=== PATIENT | female | born 1995 ===

== ENCOUNTER 2018-03-12 20:32 | Inpatient (IN) | payer MEDICAID ==
[~2018-03-12] VITALS: Ht 165.1 cm; Wt 86.0 kg
[2018-03-12 21:04] VITALS: BP 138/88
[2018-03-12] MEDS ORDERED: OXYTOCIN 30U/ 0.9% NaCL 500ML 500 ML IV ONE (22:50)
[2018-03-12] MEDS ORDERED: D5%-LACTATED RINGERS 1,000 ML IV SCH (22:50)
[2018-03-12] MEDS ORDERED: LACTATED RINGERS 1,000 ML IV SCH (22:50)
[2018-03-12] MEDS ORDERED: FENTANYL PF 100 MCG/2ML IV PRN (23:00)
[2018-03-12] MEDS ORDERED: CALCIUM CARBONATE 500 MG TAB.CHEW PO PRN (23:00)
[2018-03-12] MEDS ORDERED: ONDANSETRON 2MG/ML, 2ML IVPush PRN (23:00)
[2018-03-12] MEDS ORDERED: OXYTOCIN 30U/ 0.9% NaCL 500ML 500 ML ONE (23:09)
[2018-03-12] MEDS ORDERED: MISOPROSTOL 200 MCG TABLET ONE (23:09)
[2018-03-12] MEDS ORDERED: LIDOCAINE/PF 1%, 30ML ONE (23:09)
[2018-03-12] MEDS ORDERED: NEWBORN KIT ONE (23:09)
[2018-03-12 23:12] LABS: BASOPHILS # (AUTO) 0.33 x10^3/uL (0-0.1); BASOPHILS % (AUTO) 2 % (0-1); EOSINOPHILS # (AUTO) 0.01 x10^3/uL (0-0.4); EOSINOPHILS % (AUTO) 0 % (1-7); LYMPHOCYTES # (AUTO) 1.44 x10^3/uL (1-3.4); LYMPHOCYTES % (AUTO) 9 % (22-44); MD NO; MEAN CORPUSCULAR HEMOGLOBIN 28.3 pg (27.0-34.8); MEAN CORPUSCULAR HGB CONC 33.8 g/dL (32.4-35.8); MEAN CORPUSCULAR VOLUME 83.9 fL (80-100); MEAN PLATELET VOLUME 9.2 fL (7.4-10.4); MONOCYTES # (AUTO) 1.07 x10^3/uL (0.2-0.8); MONOCYTES % (AUTO) 7 % (2-9); NEUTROPHILS # (AUTO) 13.33 x10^3/uL (1.8-6.8); NEUTROPHILS % (AUTO) 82 % (42-75); PLATELET COUNT 210 x10^3/uL (130-400); RED BLOOD COUNT 4.46 x10^6/uL (3.82-5.3); RED CELL DISTRIBUTION WIDTH 15.6 % (9.6-15.2)
[2018-03-13] VITALS: BP 130/66
[2018-03-13] MEDS ORDERED: FENTANYL PF 100 MCG/2ML ONE ×2 (00:49→03:05)
[2018-03-13] MEDS: FENTANYL PF 100 MCG/2ML IVPush PRN ×2 (00:54→03:10)
[2018-03-13] MEDS ORDERED: OXYTOCIN 30U/ 0.9% NaCL 500ML 500 ML IV SCH (06:04)
[2018-03-13] MEDS ORDERED: METHYLERGONOVINE 0.2 MG/ML IM PRN (06:30)
[2018-03-13] MEDS ORDERED: BISACODYL 10 MG SUPP PR PRN (06:30)
[2018-03-13] MEDS ORDERED: CARBOPROST TROMETHAMINE 250 MCG/ML, 1ML IM PRN (06:30)
[2018-03-13] MEDS ORDERED: OXYcodone/APAP 5/325MG TABLET PO PRN ×2 (06:30)
[2018-03-13] MEDS ORDERED: MISOPROSTOL 200 MCG TABLET PR PRN (06:30)
[2018-03-13] MEDS ORDERED: DIPH,PERTUSS(ACELL),TET VAC/PF NC IM-VACC PRN (06:30)
[2018-03-13] MEDS ORDERED: ONDANSETRON 2MG/ML, 2ML IV PRN (06:30)
[2018-03-13] MEDS ORDERED: NEWBORN KIT ONE (06:30)
[2018-03-13] MEDS ORDERED: OXYTOCIN 30U/ 0.9% NaCL 500ML 500 ML ONE (06:31)
[2018-03-13] MEDS ORDERED: IBUPROFEN 600 MG TABLET ONE (06:31)
[2018-03-13] MEDS: IBUPROFEN 600 MG TABLET PO PRN ×3 (06:33→21:57)
[2018-03-13] MEDS: PRENATAL VIT/IRON/FA 1 EACH TABLET PO SCH (09:00)
[2018-03-13 10:15] VITALS: BP 124/77
[2018-03-13 13:42] VITALS: BP 131/79
[2018-03-13 14:08] LABS: MEAN CORPUSCULAR HEMOGLOBIN 28.1 pg (27.0-34.8); MEAN CORPUSCULAR HGB CONC 33.5 g/dL (32.4-35.8); MEAN CORPUSCULAR VOLUME 83.8 fL (80-100); MEAN PLATELET VOLUME 9.4 fL (7.4-10.4); PLATELET COUNT 208 x10^3/uL (130-400); RED BLOOD COUNT 4.22 x10^6/uL (3.82-5.3); RED CELL DISTRIBUTION WIDTH 15.6 % (9.6-15.2)
[2018-03-13 14:49] LABS: BASOPHILS # (AUTO) 0.23 x10^3/uL (0-0.1); BASOPHILS % (AUTO) 1 % (0-1); EOSINOPHILS % (AUTO) 0 % (1-7); LYMPHOCYTES # (AUTO) 1.32 x10^3/uL (1-3.4); LYMPHOCYTES % (AUTO) 6 % (22-44); MD SCAN; MONOCYTES # (AUTO) 0.78 x10^3/uL (0.2-0.8); MONOCYTES % (AUTO) 4 % (2-9); NEUTROPHILS # (AUTO) 18.61 x10^3/uL (1.8-6.8); NEUTROPHILS % (AUTO) 89 % (42-75)
[2018-03-13 18:15] VITALS: BP 135/79
[2018-03-13 21:57] VITALS: BP 129/75
[2018-03-14 01:30] VITALS: BP 122/74
[2018-03-14 05:15] VITALS: BP 136/79
[2018-03-14] MEDS: DOCUSATE 100 MG CAPSULE PO PRN (07:27)
[2018-03-14 07:40] VITALS: BP 120/72
[2018-03-14] MEDS: PRENATAL VIT/IRON/FA 1 EACH TABLET PO SCH (09:00)
[2018-03-14 20:00] VITALS: BP 128/75
[2018-03-14] MEDS: IBUPROFEN 600 MG TABLET PO PRN (23:47)
[2018-03-15 08:00] VITALS: BP 116/78
[2018-03-15] MEDS: IBUPROFEN 600 MG TABLET PO PRN (08:00)
[2018-03-15] MEDS: DOCUSATE 100 MG CAPSULE PO PRN (08:00)
[2018-03-15] MEDS: PRENATAL VIT/IRON/FA 1 EACH TABLET PO SCH (08:00)
[2018-03-15] MEDS ORDERED: MEASLES,MUMPS&RUBELLA VACC/PF 0.5 ML SQ-VACC ONE (13:30)
[2018-03-15] MEDS ORDERED: IBUP-1222 PO (13:48)
== END 2018-03-15 14:10 | disposition home or self-care (01) | DRG 807 ==
LOC: LDOP 20:32 → LDIP 23:08 → 2NW 03-13 09:00
PROVIDERS: ADMIT Obstetrics & Gynecology; ATTEND Obstetrics & Gynecology
PROC: 10E0XZZ Delivery of Products of Conception, External Approach (ICD-10-PCS; principal; 2018-03-13)
PROC: 0KQM0ZZ Repair Perineum Muscle, Open Approach (ICD-10-PCS; 2018-03-13)
PROC: 0W8NXZZ Division of Female Perineum, External Approach (ICD-10-PCS; 2018-03-13)
DX: O69.81X0 Labor and delivery complicated by cord around neck, without compression, not applicable or unspecified (principal); Z37.0 Single live birth; Z3A.39 39 weeks gestation of pregnancy; O70.1 Second degree perineal laceration during delivery
CPT/HCPCS: 36415; J7121; 85025; 86850; 86900; 90656; 90715; G0378; J3010; J2590; J7120